=== PATIENT | male | born 1950 | race African-American/Black ===

== ENCOUNTER 2018-10-06 12:41 | Inpatient (IN) | payer MEDICARE, MEDICAID ==
[~2018-10-06] VITALS: Ht 185.4 cm; Wt 64.9 kg
[2018-10-06] MEDS ORDERED: SODIUM CHLORIDE 0.9% 1,000 ML IV ONE (13:30)
[2018-10-06 14:10] LABS: BASOPHILS % 1.1 % (0.0-2.0); EOSINOPHILS % 0.4 % (0.0-5.0); HEMATOCRIT. 33.2 % (42.0-52.0); LYMPHOCYTES % 41.1 % (20.0-50.0); MEAN CORPUSCULAR HEMOGLOBIN 33.8 pg (28.0-32.0); MEAN CORPUSCULAR VOLUME 101.8 fL (80.0-94.0); MEAN PLATELET VOLUME 8.8 fl (7.4-10.4); MONOCYTES % 10.6 % (2.0-8.0); NEUTROPHILS % 46.8 % (40.0-76.0); PLATELET 126 x1000/uL (130-400); RED BLOOD CELL COUNT 3.26 mill/uL (4.7-6.1); RED CELL DISTRIBUTION WIDTH 14.4 % (11.6-14.6)
[2018-10-06 14:15] LABS: CHLORIDE 110 mEq/L (98-107)
[2018-10-06 14:16] LABS: INR 1.2
[2018-10-06 15:43] LABS: KETONES URINE 1+ (NEGATIVE); LEUKOCYTE ESTERASE URINE 2+ (NEGATIVE); NITRITE URINE POSITIVE (NEGATIVE); OCCULT BLOOD URINE NEGATIVE (NEGATIVE); PROTEIN URINE NEGATIVE (NEGATIVE); SPECIFIC GRAVITY URINE 1.028 (1.005-1.030)
[2018-10-06 15:50] LABS: CLARITY URINE HAZY (CLEAR); COLOR URINE DARK YELLOW (YELLOW)
[2018-10-06] MEDS ORDERED: CEFTRIAXONE 1 G PREMIX 50 ML IV ONE (16:00)
[2018-10-06] MEDS ORDERED: GUAIFENESIN 200MG/10ML SUGAR FREE UDC PO PRN (21:45)
[2018-10-06] MEDS ORDERED: NITROGLYCERIN 0.4MG TABLET SL SL PRN (21:45)
[2018-10-06] MEDS ORDERED: NA PHOS,M-B/NA PHOS,DI-BA ENEMA 118ML PR PRN (21:45)
[2018-10-06] MEDS ORDERED: ONDANSETRON HCL 4MG/2ML INJ IV PRN (21:45)
[2018-10-06] MEDS ORDERED: DOCUSATE SODIUM 100MG CAPSULE PO PRN (21:45)
[2018-10-06] MEDS ORDERED: IPRATROPIUM/ALBUTEROL 0.5-3(2.5)MG/3ML NEB INH PRN (21:45)
[2018-10-06] MEDS ORDERED: CLONIDINE 0.1MG TABLET PO PRN (21:45)
[2018-10-06] MEDS ORDERED: MAGNESIUM/ALUMINUM HYDROXIDE/SIMETHICONE 30ML UDC PO PRN (21:45)
[2018-10-06 22:00] VITALS: BP 120/74
[2018-10-06 23:00] VITALS: BP 120/74
[2018-10-07] VITALS (7 sets, daily range): BP systolic 102–125; BP diastolic 67–77
[2018-10-07] MEDS: SODIUM CHLORIDE 0.9% 1,000 ML IV SCH ×2 (00:05→13:10)
[2018-10-07] MEDS: ENOXAPARIN 40MG/0.4ML SYR SUBCUT SCH ×2 (00:05→22:08)
[2018-10-07] MEDS: LEVOFLOXACIN 500MG PREMIX 100 ML IV SCH ×2 (00:06→22:09)
[2018-10-07] MEDS: ZOLPIDEM TARTRATE 5MG TABLET PO PRN (00:07)
[2018-10-07] MEDS: TRAMADOL 50MG TABLET PO PRN ×3 (00:07→22:07)
[2018-10-07 01:09] LABS: CREATINE KINASE 125 IU/L (39-308)
[2018-10-07 01:10] LABS: CREATINE KINASE MB FRACTION 2.1 ng/mL (0.5-3.6)
[2018-10-07 06:55] LABS: CREATINE KINASE 99 IU/L (39-308)
[2018-10-07 06:56] LABS: CREATINE KINASE MB FRACTION 1.7 ng/mL (0.5-3.6)
[2018-10-07] MEDS: ASPIRIN 325MG EC TABLET PO SCH (08:37)
[2018-10-07] MEDS: FAMOTIDINE 20MG TABLET PO SCH ×2 (08:37→22:08)
[2018-10-07] MEDS: ZINC SULFATE 220 MG ( 50 ) CAPSULE PO SCH (08:37)
[2018-10-07] MEDS: ASCORBIC ACID 500 MG TABLET PO SCH ×2 (08:37→22:08)
[2018-10-07] MEDS: CEFTRIAXONE 1 G PREMIX 50 ML IV SCH (08:38)
[2018-10-07 09:22] LABS: T4 FREE 1.44 ng/dL (0.76-1.46)
[2018-10-07 09:49] LABS: FOLIC ACID (FOLATE) SERUM 8.7 ng/mL (>5.38)
[2018-10-08] MEDS: SODIUM CHLORIDE 0.9% 1,000 ML IV SCH ×2 (00:48→13:48)
[2018-10-08 04:00] VITALS: BP 108/75
[2018-10-08] MEDS ORDERED: TAMS-11 PO (07:28)
[2018-10-08 08:09] VITALS: BP 100/66
[2018-10-08] MEDS: ASCORBIC ACID 500 MG TABLET PO SCH ×2 (08:31→20:50)
[2018-10-08] MEDS: ZINC SULFATE 220 MG ( 50 ) CAPSULE PO SCH (08:31)
[2018-10-08] MEDS: FAMOTIDINE 20MG TABLET PO SCH ×2 (08:31→20:49)
[2018-10-08] MEDS: CEFTRIAXONE 1 G PREMIX 50 ML IV SCH (08:31)
[2018-10-08] MEDS: ASPIRIN 325MG EC TABLET PO SCH (08:31)
[2018-10-08 08:57] LABS: *BARBITURATES SCREEN URINE NEGATIVE (NEGATIVE); *BENZODIAZEPINES SCREEN URINE NEGATIVE (NEGATIVE); *COCAINE SCREEN URINE NEGATIVE (NEGATIVE); METHADONE URINE SCREEN NEGATIVE (NEGATIVE); OPIATES URINE SCREEN PRESUMTIVE POSITIVE (NEGATIVE)
[2018-10-08 08:58] LABS: *AMPHETAMINES SCREEN URINE NEGATIVE (NEGATIVE); CANNABINOID URINE SCREEN PRESUMTIVE POSITIVE (NEGATIVE)
[2018-10-08 09:00] LABS: PHENCYCLIDINE URINE SCREEN NEGATIVE (NEGATIVE)
[2018-10-08 09:04] VITALS: BP 110/68
[2018-10-08] MEDS: TRAMADOL 50MG TABLET PO PRN (09:05)
[2018-10-08] MEDS: TAMSULOSIN HCL 0.4MG SR CAPSULE PO SCH ×2 (09:13→20:53)
[2018-10-08] MEDS: DUTASTERIDE 0.5MG CAPSULE PO SCH (09:14)
[2018-10-08 12:07] VITALS: BP 110/72
[2018-10-08 16:17] VITALS: BP 103/67
[2018-10-08 20:21] VITALS: BP 100/64
[2018-10-08] MEDS: ENOXAPARIN 40MG/0.4ML SYR SUBCUT SCH (20:51)
[2018-10-08] MEDS: LEVOFLOXACIN 500MG PREMIX 100 ML IV SCH (22:52)
[2018-10-09] VITALS: BP 123/83
[2018-10-09 04:00] VITALS: BP 102/70
[2018-10-09] MEDS: SODIUM CHLORIDE 0.9% 1,000 ML IV SCH ×2 (04:32→16:40)
[2018-10-09 08:00] VITALS: BP 121/70
[2018-10-09] MEDS: TAMSULOSIN HCL 0.4MG SR CAPSULE PO SCH ×2 (09:13→21:43)
[2018-10-09] MEDS: ZINC SULFATE 220 MG ( 50 ) CAPSULE PO SCH (09:13)
[2018-10-09] MEDS: FAMOTIDINE 20MG TABLET PO SCH ×2 (09:13→21:43)
[2018-10-09] MEDS: ASPIRIN 325MG EC TABLET PO SCH (09:13)
[2018-10-09] MEDS: ASCORBIC ACID 500 MG TABLET PO SCH ×2 (09:13→21:45)
[2018-10-09] MEDS: CEFTRIAXONE 1 G PREMIX 50 ML IV SCH (09:17)
[2018-10-09] MEDS: DUTASTERIDE 0.5MG CAPSULE PO SCH (09:17)
[2018-10-09 12:33] VITALS: BP 108/70
[2018-10-09 15:19] VITALS: BP 137/82
[2018-10-09] MEDS: MEROPENEM 1,000 MG in SODIUM CHLORIDE 0.9% 100 ML IV SCH (17:46)
[2018-10-09 20:00] VITALS: BP 110/65
[2018-10-09] MEDS: ENOXAPARIN 40MG/0.4ML SYR SUBCUT SCH (21:44)
[2018-10-10] VITALS: BP 116/71
[2018-10-10] MEDS: MEROPENEM 1,000 MG in SODIUM CHLORIDE 0.9% 100 ML IV SCH ×3 (01:17→17:15)
[2018-10-10 04:00] VITALS: BP 119/78
[2018-10-10] MEDS: SODIUM CHLORIDE 0.9% 1,000 ML IV SCH (05:01)
[2018-10-10 08:00] VITALS: BP 114/73
[2018-10-10] MEDS: DUTASTERIDE 0.5MG CAPSULE PO SCH (09:55)
[2018-10-10] MEDS: FAMOTIDINE 20MG TABLET PO SCH ×2 (09:55→20:57)
[2018-10-10] MEDS: ZINC SULFATE 220 MG ( 50 ) CAPSULE PO SCH (09:56)
[2018-10-10] MEDS: ASPIRIN 325MG EC TABLET PO SCH (09:56)
[2018-10-10] MEDS: ASCORBIC ACID 500 MG TABLET PO SCH ×2 (09:56→20:58)
[2018-10-10] MEDS: TAMSULOSIN HCL 0.4MG SR CAPSULE PO SCH ×2 (09:56→20:57)
[2018-10-10 12:00] VITALS: BP 111/76
[2018-10-10 15:57] VITALS: BP 116/71
[2018-10-10 20:00] VITALS: BP 119/77
[2018-10-10] MEDS: ENOXAPARIN 40MG/0.4ML SYR SUBCUT SCH (20:58)
[2018-10-11] VITALS (7 sets, daily range): BP systolic 107–130; BP diastolic 69–86
[2018-10-11] MEDS: MEROPENEM 1,000 MG in SODIUM CHLORIDE 0.9% 100 ML IV SCH ×3 (03:46→17:48)
[2018-10-11] MEDS: DUTASTERIDE 0.5MG CAPSULE PO SCH (09:12)
[2018-10-11] MEDS: ASCORBIC ACID 500 MG TABLET PO SCH ×2 (09:12→21:01)
[2018-10-11] MEDS: FAMOTIDINE 20MG TABLET PO SCH ×2 (09:13→21:01)
[2018-10-11] MEDS: ZINC SULFATE 220 MG ( 50 ) CAPSULE PO SCH (09:13)
[2018-10-11] MEDS: ASPIRIN 325MG EC TABLET PO SCH (09:13)
[2018-10-11] MEDS: TAMSULOSIN HCL 0.4MG SR CAPSULE PO SCH ×2 (09:18→21:01)
[2018-10-11] MEDS: SODIUM CHLORIDE 0.9% 1,000 ML IV SCH ×2 (20:00→21:05)
[2018-10-11] MEDS: ENOXAPARIN 40MG/0.4ML SYR SUBCUT SCH (21:02)
[2018-10-11] MEDS: ZOLPIDEM TARTRATE 5MG TABLET PO PRN (21:13)
[2018-10-12] MEDS: MEROPENEM 1,000 MG in SODIUM CHLORIDE 0.9% 100 ML IV SCH ×3 (01:45→18:08)
[2018-10-12 04:00] VITALS: BP 124/79
[2018-10-12 08:13] VITALS: BP 113/69
[2018-10-12] MEDS: FAMOTIDINE 20MG TABLET PO SCH ×2 (08:50→20:27)
[2018-10-12] MEDS: DUTASTERIDE 0.5MG CAPSULE PO SCH (08:50)
[2018-10-12] MEDS: ZINC SULFATE 220 MG ( 50 ) CAPSULE PO SCH (08:51)
[2018-10-12] MEDS: ASCORBIC ACID 500 MG TABLET PO SCH ×2 (08:51→20:27)
[2018-10-12] MEDS: TAMSULOSIN HCL 0.4MG SR CAPSULE PO SCH ×2 (08:52→20:27)
[2018-10-12] MEDS: ASPIRIN 325MG EC TABLET PO SCH (08:52)
[2018-10-12 11:48] VITALS: BP 99/63
[2018-10-12 16:13] VITALS: BP 121/72
[2018-10-12] MEDS: SODIUM CHLORIDE 0.9% 1,000 ML IV SCH (18:09)
[2018-10-12 19:57] VITALS: BP 114/74
[2018-10-12] MEDS: ENOXAPARIN 40MG/0.4ML SYR SUBCUT SCH (20:26)
[2018-10-13] VITALS (8 sets, daily range): BP systolic 103–113; BP diastolic 68–75
[2018-10-13] MEDS: MEROPENEM 1,000 MG in SODIUM CHLORIDE 0.9% 100 ML IV SCH ×3 (02:33→17:24)
[2018-10-13] MEDS: SODIUM CHLORIDE 0.9% 1,000 ML IV SCH (10:07)
[2018-10-13] MEDS: ZINC SULFATE 220 MG ( 50 ) CAPSULE PO SCH (10:08)
[2018-10-13] MEDS: DUTASTERIDE 0.5MG CAPSULE PO SCH (10:08)
[2018-10-13] MEDS: FAMOTIDINE 20MG TABLET PO SCH ×2 (10:08→20:57)
[2018-10-13] MEDS: ASCORBIC ACID 500 MG TABLET PO SCH ×2 (10:08→20:57)
[2018-10-13] MEDS: ASPIRIN 325MG EC TABLET PO SCH (10:09)
[2018-10-13] MEDS: TAMSULOSIN HCL 0.4MG SR CAPSULE PO SCH ×2 (10:23→20:57)
[2018-10-13] MEDS: ACETAMINOPHEN 325MG TABLET PO PRN ×3 (10:24→15:01)
[2018-10-13] MEDS: ENOXAPARIN 40MG/0.4ML SYR SUBCUT SCH (20:57)
[2018-10-14] VITALS (7 sets, daily range): BP systolic 111–119; BP diastolic 67–77
[2018-10-14] MEDS: MEROPENEM 1,000 MG in SODIUM CHLORIDE 0.9% 100 ML IV SCH ×3 (01:18→17:35)
[2018-10-14] MEDS: SODIUM CHLORIDE 0.9% 1,000 ML IV SCH ×2 (02:24→16:40)
[2018-10-14] MEDS: FAMOTIDINE 20MG TABLET PO SCH ×2 (08:53→21:10)
[2018-10-14] MEDS: DUTASTERIDE 0.5MG CAPSULE PO SCH (08:53)
[2018-10-14] MEDS: ASCORBIC ACID 500 MG TABLET PO SCH ×2 (08:53→21:10)
[2018-10-14] MEDS: ZINC SULFATE 220 MG ( 50 ) CAPSULE PO SCH (08:53)
[2018-10-14] MEDS: ASPIRIN 325MG EC TABLET PO SCH (08:53)
[2018-10-14] MEDS: TAMSULOSIN HCL 0.4MG SR CAPSULE PO SCH ×2 (08:54→21:11)
[2018-10-14] MEDS: ACETAMINOPHEN 325MG TABLET PO PRN (21:10)
[2018-10-14] MEDS: ENOXAPARIN 40MG/0.4ML SYR SUBCUT SCH (21:12)
[2018-10-15] VITALS (7 sets, daily range): BP systolic 107–121; BP diastolic 68–79
[2018-10-15] MEDS: MEROPENEM 1,000 MG in SODIUM CHLORIDE 0.9% 100 ML IV SCH ×3 (01:43→17:18)
[2018-10-15] MEDS: SODIUM CHLORIDE 0.9% 1,000 ML IV SCH ×2 (06:19→19:20)
[2018-10-15 06:57] LABS: HEMOGLOBIN 9.6 g/dL (14.0-18.0); MEAN CORPUSCULAR HEMOGLOBIN 34.3 pg (28.0-32.0); MEAN CORPUSCULAR VOLUME 100.3 fL (80.0-94.0); PLATELET 103 x1000/uL (130-400); RED BLOOD CELL COUNT 2.79 mill/uL (4.7-6.1); RED CELL DISTRIBUTION WIDTH 14.6 % (11.6-14.6)
[2018-10-15] MEDS: ASCORBIC ACID 500 MG TABLET PO SCH ×2 (09:51→22:18)
[2018-10-15] MEDS: TAMSULOSIN HCL 0.4MG SR CAPSULE PO SCH ×2 (09:51→22:18)
[2018-10-15] MEDS: ASPIRIN 325MG EC TABLET PO SCH (09:52)
[2018-10-15] MEDS: FAMOTIDINE 20MG TABLET PO SCH ×2 (09:52→22:18)
[2018-10-15] MEDS: ZINC SULFATE 220 MG ( 50 ) CAPSULE PO SCH (09:52)
[2018-10-15] MEDS: DUTASTERIDE 0.5MG CAPSULE PO SCH (09:52)
[2018-10-15] MEDS: ENOXAPARIN 40MG/0.4ML SYR SUBCUT SCH (22:18)
== END 2018-10-15 22:33 | DRG 720 ==
LOC: ER 12:41 → 6WST 16:38 → EDBEDREQ 16:39 → ENRESERV 21:10 → SUPCPDRO 21:42
PROVIDERS: ADMIT Internal Medicine; ATTEND Internal Medicine
DX: A41.9 Sepsis, unspecified organism (principal); E44.0 Moderate protein-calorie malnutrition; G92 Toxic encephalopathy; D69.6 Thrombocytopenia, unspecified; N39.0 Urinary tract infection, site not specified; D63.8 Anemia in other chronic diseases classified elsewhere; I10 Essential (primary) hypertension; F17.210 Nicotine dependence, cigarettes, uncomplicated; F12.10 Cannabis abuse, uncomplicated; B96.29 Other Escherichia coli [E. coli] as the cause of diseases classified elsewhere; J44.9 Chronic obstructive pulmonary disease, unspecified; B19.20 Unspecified viral hepatitis C without hepatic coma; Z85.038 Personal history of other malignant neoplasm of large intestine; Z90.01 Acquired absence of eye; Z93.4 Other artificial openings of gastrointestinal tract status; Z71.51 Drug abuse counseling and surveillance of drug abuser; Z68.1 Body mass index [BMI] 19.9 or less, adult
CPT/HCPCS: 36415; 71045; 80061; 80305; 82550; 82553; 82607; 82746; 83036; 83540; 83550; 84439; 84443; 84484; 85027; 87077; 87186; 93005; 93306; 93970; 97116; 97162; 97166; 97530; 99285; A6261; J0696; J1650; J1956; J2185; J7030; J7050